=== PATIENT | female | born 1955 | race Hispanic/Latino ===

== ENCOUNTER 2019-08-12 03:49 | Emergency (ER) | payer SELFPAY ==
[2019-08-12 04:30] LABS: Hematocrit 39.2 % (36.0-45.0); RBC Red Blood Cell Count 4.33 M/uL (3.86-4.86)
[2019-08-12 04:49] LABS: Albumin 3.5 g/dL (3.4-5.0); Bilirubin Total 0.3 mg/dL (0.2-1.0); Potassium 3.5 mmol/L (3.5-5.1); Protein, Total 7.1 g/dL (6.4-8.2)
--- NOTE | 2019-08-12 05:10 | ER ---
Nurse's Notes [facility] Name: Jane Galaviz Age: 63 yrs Sex: Female : 1955 Arrival Date: 08/12/2019 Time: 03:52 Bed 7 Private MD: Diagnosis: Anxiety disorder, unspecified Presentation: 08/12 04:05 Presenting complaint: Patient states: Woke up to go to the bathroom and felt shaky, tl1 anxious and dizzy. Is visiting from [place] and forgot her Meclizine and cholesterol medicaiton. Transition of care: patient was not received from another setting of care. Onset of symptoms was August 12, 2019. Risk Assessment: Do you want to hurt yourself or someone else? Patient reports no desire to harm self or others. Initial Sepsis Screen: Does the patient meet any 2 criteria? No. Patient's initial sepsis screen is negative. Does the patient have a suspected source of infection? No. Patient's initial sepsis screen is negative. Care prior to arrival: None. 04:05 Method Of Arrival: Wheelchair tl1 04:05 Acuity: CLAUDE 3 tl1 Historical: - Allergies: 04:09 No Known Allergies; tl1 - Home Meds: 04:09 meclizine 25 mg oral tab 1 tab [Active]; atorvastatin oral oral [Active]; tl1 - PMHx: 04:09 High Cholesterol; vertigo; tl1 - PSHx: 04:09 None; tl1 - Immunization history:: Adult Immunizations up to date. - Social history:: Smoking status: Patient/guardian denies using tobacco, the patient reports quitting approximately 1 years ago, Patient/guardian denies using alcohol, the patient reports quitting approximately 1 years ago. - Ebola Screening: : Patient negative for fever greater than or equal to 101.5 degrees Fahrenheit, and additional compatible Ebola Virus Disease symptoms Patient denies exposure to infectious person Patient denies travel to an Ebola-affected area in the 21 days before illness onset. Screenin:11 Abuse screen: Denies threats or abuse. Denies injuries from another. Nutritional tl1 screening: No deficits noted. Tuberculosis screening: No symptoms or risk factors identified. Fall Risk None identified. Assessment: 04:10 General: Appears in no apparent distress. comfortable, Behavior is calm, cooperative, tl1 appropriate for age. Pain: Denies pain. Neuro: Level of Consciousness is awake, alert, obeys commands, Oriented to person, place, time, situation, Moves all extremities. Speech is normal. Cardiovascular: Denies chest pain. Respiratory: Airway is patent Trachea midline Respiratory effort is even, unlabored, Respiratory pattern is regular, symmetrical, Breath sounds are clear bilaterally. GI: Abdomen is non-distended, Bowel sounds present X 4 quads. Abd is soft and non tender X 4 quads. : No signs and/or symptoms were reported regarding the genitourinary system. EENT: No signs and/or symptoms were reported regarding the EENT system. Derm: No signs and/or symptoms reported regarding the dermatologic system. Musculoskeletal: No signs and/or symptoms reported regarding the musculoskeletal system. 05:18 Reassessment: Patient and/or family updated on plan of care and expected duration. Pain tl1 level reassessed. Patient is alert, oriented x 3, equal unlabored respirations, skin warm/dry/pink. Patient states feeling better. Patient states symptoms have improved. General: Appears in no apparent distress. Behavior is calm, cooperative, appropriate for age. Pain: Denies pain. Neuro: Level of Consciousness is awake, alert, obeys commands, Oriented to person, place, time, situation, Speech is normal. Respiratory: Airway is patent Trachea midline Respiratory effort is even, unlabored, Respiratory pattern is regular, symmetrical. Vital Signs: 04:07 BP 154 / 81; Pulse 76; Resp 16; Temp 98.7; Pulse Ox 99% on R/A; Weight 79.38 kg; Height tl1 5 ft. 1 in. (154.94 cm); Pain 0/10; 05:20 BP 142 / 88; Pulse 78; Resp 20; Temp 98.7(TE); Pulse Ox 98% on R/A; Pain 0/10; tl1 04:07 Body Mass Index 33.07 (79.38 kg, 154.94 cm) tl1 ED Course: 03:52 Patient arrived in ED. ds1 04:05 Osbaldo Burnette MD is Attending Physician. tw4 04:05 Makayla Jha, KIRSTEN is Primary Nurse. tl1 04:07 Triage completed. tl1 04:10 Arm band placed on right wrist. tl1 04:10 Patient has correct armband on for positive identification. Bed in low position. Call tl1 light in reach. Side rails up X 1. Adult w/ patient. 05:18 No provider procedures requiring assistance completed. Patient did not have IV access tl1 during this emergency room visit. Administered Medications: No medications were administered Outcome: 05:09 Discharge ordered by . tw4 05:19 Discharged to home ambulatory, with family. tl1 05:19 Condition: good 05:19 Discharge instructions given to patient, family, Instructed on discharge instructions, follow up and referral plans. Demonstrated understanding of instructions, follow-up care. 05:34 Patient left the ED. tl1 Signatures: Kim Pino ds1 Makayla Jha RN RN tl1 Osbaldo Burnette MD MD tw4
--- NOTE | 2019-08-12 05:10 | EDPHYS ---
Physician Documentation [facility] Name: Jane Galaviz Age: 63 yrs Sex: Female : 1955 Arrival Date: 08/12/2019 Time: 03:52 Bed 7 Private MD: ED Physician Osbaldo Burnette HPI: 08/12 04:31 This 63 yrs old Female presents to ER via Wheelchair with complaints of Shaky. tw4 04:31 woke up and felt shaky , bilateral hand numbness. Onset: The symptoms/episode tw4 began/occurred today. Severity of symptoms: At their worst the symptoms were moderate in the emergency department the symptoms are unchanged. The patient has not experienced similar symptoms in the past. Historical: - Allergies: 04:09 No Known Allergies; tl1 - Home Meds: 04:09 meclizine 25 mg oral tab 1 tab [Active]; atorvastatin oral oral [Active]; tl1 - PMHx: 04:09 High Cholesterol; vertigo; tl1 - PSHx: 04:09 None; tl1 - Immunization history:: Adult Immunizations up to date. - Social history:: Smoking status: Patient/guardian denies using tobacco, the patient reports quitting approximately 1 years ago, Patient/guardian denies using alcohol, the patient reports quitting approximately 1 years ago. - Ebola Screening: : Patient negative for fever greater than or equal to 101.5 degrees Fahrenheit, and additional compatible Ebola Virus Disease symptoms Patient denies exposure to infectious person Patient denies travel to an Ebola-affected area in the 21 days before illness onset. ROS: 04:31 Constitutional: Negative for fever, chills, and weight loss, Eyes: Negative for injury, tw4 pain, redness, and discharge, Cardiovascular: Negative for chest pain, palpitations, and edema, Respiratory: Negative for shortness of breath, cough, wheezing, and pleuritic chest pain, Abdomen/GI: Negative for abdominal pain, nausea, vomiting, diarrhea, and constipation, Back: Negative for injury and pain, MS/Extremity: Negative for injury and deformity, Skin: Negative for injury, rash, and discoloration, Neuro: Negative for headache, weakness, numbness, tingling, and seizure. Exam: 04:31 Constitutional: This is a well developed, well nourished patient who is awake, alert, tw4 and in no acute distress. Head/Face: Normocephalic, atraumatic. Chest/axilla: Normal chest wall appearance and motion. Nontender with no deformity. No lesions are appreciated. Cardiovascular: Regular rate and rhythm with a normal S1 and S2. No gallops, murmurs, or rubs. Normal PMI, no JVD. No pulse deficits. Respiratory: Lungs have equal breath sounds bilaterally, clear to auscultation and percussion. No rales, rhonchi or wheezes noted. No increased work of breathing, no retractions or nasal flaring. Abdomen/GI: Soft, non-tender, with normal bowel sounds. No distension or tympany. No guarding or rebound. No evidence of tenderness throughout. Back: No spinal tenderness. No costovertebral tenderness. Full range of motion. MS/ Extremity: Pulses equal, no cyanosis. Neurovascular intact. Full, normal range of motion. Neuro: Awake and alert, GCS 15, oriented to person, place, time, and situation. Cranial nerves II-XII grossly intact. Motor strength 5/5 in all extremities. Sensory grossly intact. Cerebellar exam normal. Normal gait. Vital Signs: 04:07 BP 154 / 81; Pulse 76; Resp 16; Temp 98.7; Pulse Ox 99% on R/A; Weight 79.38 kg; Height tl1 5 ft. 1 in. (154.94 cm); Pain 0/10; 05:20 BP 142 / 88; Pulse 78; Resp 20; Temp 98.7(TE); Pulse Ox 98% on R/A; Pain 0/10; tl1 04:07 Body Mass Index 33.07 (79.38 kg, 154.94 cm) tl1 MDM: 03:57 Patient medically screened. tw4 04:05 Patient medically screened. tw4 08/12 04:06 Order name: CMP; Complete Time: 05:06 tw4 08/12 05:06 Interpretation: Normal except: GFR 86; GLOB 3.6; A/G 1.0; GLUC 112. tw4 08/12 04:06 Order name: CBC w/o diff; Complete Time: 05:06 tw4 Administered Medications: No medications were administered Disposition: 08/12/19 05:09 Discharged to Home. Impression: Anxiety disorder, unspecified. - Condition is Stable. - Discharge Instructions: Generalized Anxiety Disorder. - Medication Reconciliation Form, Thank You Letter, Antibiotic Education, Prescription Opioid Use form. - Follow up: Private Physician; When: Upon discharge from the Emergency Department; Reason: If symptoms return, Recheck today's complaints, Continuance of care. Signatures: Dispatcher [employer] EDTN Makayla Jha RN RN tl1 Osbaldo Burnette MD MD tw4 Corrections: (The following items were deleted from the chart) 05:34 05:09 08/12/2019 05:09 Discharged to Home. Impression: Anxiety disorder, unspecified. tl1 Condition is Stable. Forms are Medication Reconciliation Form, Thank You Letter, Antibiotic Education, Prescription Opioid Use. Follow up: Private Physician; When: Upon discharge from the Emergency Department; Reason: If symptoms return, Recheck today's complaints, Continuance of care. tw4
[2019-08-12 07:07] VITALS: TEMP 98.7
[2019-08-12 07:09] VITALS: BP 142/88; O2SAT 98
== END 2019-08-12 05:34 | disposition home or self-care (01) ==
LOC: ER 03:49
DX: F41.9 Anxiety disorder, unspecified (principal); E78.00 Pure hypercholesterolemia, unspecified; R42 Dizziness and giddiness
CPT/HCPCS: 36415; 80053; 85027; 99281